=== PATIENT | male | born 1965 | race Two or more races ===

== ENCOUNTER 2017-11-07 11:00 | Outpatient (RCR) | payer BC, SELFPAY ==
--- NOTE | 2017-10-24 08:26 | PTTR_ITS ---
DATE: 10/24/17 SUBJECTIVE: Robert states that his arms are feeling a bit stronger. He continues to have left elbow pain, which in fact got a bit worse after cutting trails through the [place] this week, particularly using loppers and the weed whacker. He 's also experiencing left wrist pain, particularly in weight bearing positions and when using equipment. Compliant with HEP: x Yes No OBJECTIVE: Manual therapy: ([id number]): Patient received DTM to the left wrist extensor group. He received CFM to the common extensor tendon, and grade II elbow mobs. His wrist ROM is full, although he does have significant tightness through the extensor group. He received manual stretching here, followed by grade III MWM into wrist extension, with overpressure at the capitate. He received IASTM for upregulation of the right biceps; deferred on taping today, as patient is unsure if he sees benefit with this. He was instructed in quadruped alternating arm lifts for 10 reps twice per day, and instructed to transition to green theraband for bicep curls, and add 1# weights to wrist extension. Direct treatment time: 30 minutes Total treatment time: 30 minutes
--- NOTE | 2017-11-07 11:00 | PTTR_ITS ---
DATE: 11/07/17 SUBJECTIVE: Robert states that his biceps seem to be feeling better. He continues to notice weakness, although has less pain than previously. His elbow continues to be an issue, symptoms fluctuate significantly based on activity. He continues to be doing a great deal of aggressive activity in regards to building his house. He built a pizza oven and did a great deal of stirring the chai work and states his elbow was quite irritated after this. Manual therapy: ([id number]). Patient received manual stretching to L wrist extensors followed by deep tissue mobilization techniques throughout the extensor group and cross friction massage to the common extensor tendon. He received elbow mobilizations at grade 3 followed by manual mobilization to the L wrist with over pressure at the capitate during passive wrist extension. Therapeutic procedures ([id number]). Patient was instructed in a progressed exercise program. He was instructed in eccentric loading of the extensor group with use of a green flex bar. He performs 2 sets of 10 reps with this requiring significant cueing throughout. He was also instructed in serratus punches with 5# resistance for 10 reps and self stretching to the extensor group. He was provided with hand outs for home completion for each of these activities. He will modify his quadruped activities although if these continue to create stress to the wrist, he will discontinue them. Direct treatment time: 30 mins Total treatment time: 30 mins SS/dl
== END 2017-11-22 23:59 | disposition home or self-care (01) ==
LOC: PT 11:00
PROVIDERS: PCP Specialist/Technologist Athletic Trainer; Referring Provider Specialist/Technologist Athletic Trainer; Visit Provider Specialist/Technologist Athletic Trainer
DX: M77.12 Lateral epicondylitis, left elbow (principal); S46.201D Unspecified injury of muscle, fascia and tendon of other parts of biceps, right arm, subsequent encounter
CPT/HCPCS: 97110; 97140

== ENCOUNTER 2018-11-17 11:52 | Day surgery (SDC) | payer BC, SELFPAY ==
--- NOTE | 2018-11-17 07:07 | W.COLOREPORT ---
Date of service: 11/17/18 Time of Service: 12:54 Colonoscopy Report Date of procedure: 11/17/18 Pre-op diagnosis general: Family history of colon cancer Post-op diagnosis procedure note: other (colorectal polyps) Procedure: Colonoscopy with polypectomy by cold forceps Surgeon: Jaja Gaona Anesthesia proc note operative: other (General/ ASA 2/Ángela Green, LUTHER) Estimated blood loss (mL): 2 Pathology: other (ascending, transverse x2 and descending polyp) Complications: None Disposition: same day Indications: Mr. Trujillo is a pleasant 53 year old male seen in the office for a colonoscopy. His last colonoscopy was in 2013 and was unremarkable. He has a family history of colon cancer. Risks, benefits and complications have been reviewed. Complications include but are not limited to bleeding, pain, perforation, missed small lesion/polyp, sore throat, aspiration and adverse reaction to the medications. Questions were entertained and answered to their satisfaction and they wished to proceed. No guarantees were given or implied. Prep: Miralax/Dulcolax Procedure Start Time: 12:54 Procedure End Time: 13:24 Retraction Time: 21 Findings: Small polyp x 4 removed Procedure Description: After informed consent was obtained the patient was taken to the procedure room and placed in a left decubitous position. Monitors were applied and a time out was done. The patients name, date of , procedure, allergies to medications and metal in their body was reviewed. The patient was then sedated. Once sedated and comfortable a rectal exam was done. External exam was normal. Internal exam revealed a normal sphincter tone and no palpable masses. The prostate was smooth. The scope was then introduced and retro-flexed. No internal hemorrhoids, polyps or masses were identified. The scope was then advanced to the cecum without difficulty. The TI and appendiceal orifice were identified. The prep was adequate. The scope was then slowly retracted over 21 minutes back into the rectum. Polyps were removed with cold forceps in the ascenidng colon, transverse colon x2 and descending colon. The scope was removed and the patient was woken up and taken back to Same day surgery in stable condition. The patient tolerated the procedure well and there were no immediate complications. Follow up: The patient should follow up in 3-5 years unless they develop changes in bowel habits or other new gastrointestinal complaints.
--- NOTE | 2018-11-17 07:10 | W.PM.DSUDISC ---
Discharge Plan Disposition Patient Disposition: HOME Condition: Good Discharge Details Reason For Visit: Colon Cancer Screening/ Family history Attending Provider: Jaja Gaona Primary Care Provider: Duy Shannon Home Meds and New Rx's Prescriptions: Continued carbidopa-levodopa [Sinemet] 25-100 mg tablet 2 tab PO BID Qty: 360 RF: 3 Discontinued polyethylene glycol 3350 17 gram/dose powder 238 g PO ONCE Qty: 238 RF: 0 bisacodyl [Dulcolax (bisacodyl)] 5 mg tablet,delayed release (DR/EC) 5 mg PO ONCE Qty: 4 RF: 0 Discharge Instructions Instructions: Colonoscopy (GEN), Colorectal Polyps (GEN) Additional Instructions: Findings: 4 small polyps Follow up: 3-5 Please call if you develop: fevers >101.5 Nausea or Vomiting Abdominal pain that is not transient DAY SURGERY UNIT POST COLONOSCOPY INSTRUCTIONS 1. Because there will be medication in your system for the next 24 hours, you may feel a little sleepy. Your coordination will be affected. Therefore: a. Do not drive or operate dangerous equipment for 24 hours. b. Do not drink alcohol beverages for 24 hours (not even beer). c. Plan to go home and rest for the day. 2. Generally there are no restrictions on your activity after a day or so has gone by, but you may feel a bit fatigued for a few days. 3 After you arrive home you may have a light meal and return to a normal diet as you can tolerate it without feeling sick to your stomach. 4. After surgery, you may feel pain or discomfort. This should be only transient, but if it persists please contact your doctor. 5. If there are any questions regarding the findings of your procedure, please feel free to contact your doctor. 6. If you are unable to contact your doctor with a problem, contact the hospital at [phone]. 7. Continue all your regular medications unless directed otherwise. I understand the above instructions and have no questions. Signature of Patient or Responsible Adult Escort Date/Time Name of Responsible Adult Escort Signature of Nurse Date/Time Activity:: Activity as Tolerated Diet:: As Tolerated Discharge Orders Discharge Orders: Discharge Order (Routine); Ordered 11/17/18 Ordered By: Jaja Gaona DS: Diagnosis Discharge Diagnosis (1) S/P colonoscopy: Status: Acute (2) Colorectal polyps: (3) Family history of colon cancer:
[2018-11-17 12:15] VITALS: BP 132/81; PULSE 55; RESP 18; TEMP 36.3; O2SAT 94
[2018-11-17 12:23] VITALS: BP 132/81; PULSE 55; RESP 18; TEMP 36.3; O2SAT 94
[2018-11-17] MEDS: Lactated Ringers 1,000 ML 80 ML IV (12:34)
--- NOTE | 2018-11-17 13:07 | BOWEL_PTH ---
PATIENT: Robert Trujillo LOC: [facility] U#:[id number] AGE/SX: 53/M ROOM: RE11/17/[address]: Jaja Gaona MD : 1965 BED: DIS: 11/17/2018 SPEC #: [id number] RECD: 11/17/18 17:30 STATUS: RONEY REAriadne #: [id number] MAGEN: 11/17/18 13:[address]: Jaja Gaona DEPT: Surgical Specimen RECD BY: Marcia Deras ENTERED: 11/17/18 17:30 SP TYPE: Bowel OTHR DR: Duy Shannon Tissues: 1 - BIOPSY BOWEL 2 - BIOPSY BOWEL 3 - BIOPSY BOWEL Procedures: GROSS AND MICRO LEVEL 4 Comments: [id number]
[2018-11-17 14:08] VITALS: BP 105/65; PULSE 52; RESP 16; TEMP 36; O2SAT 100
== END 2018-11-17 14:46 | disposition home or self-care (01) ==
LOC: SUR 11:53
PROVIDERS: PCP Specialist/Technologist Athletic Trainer; Visit Provider Surgery
PROC: 0DJD8ZZ Inspection of Lower Intestinal Tract, Via Natural or Artificial Opening Endoscopic (ICD-10-PCS; CPT 45378; principal; 2018-11-17 13:15)
DX: Z12.11 Encounter for screening for malignant neoplasm of colon (principal); Z80.0 Family history of malignant neoplasm of digestive organs; K63.5 Polyp of colon; D12.3 Benign neoplasm of transverse colon; D12.4 Benign neoplasm of descending colon; Z86.010 Personal history of colon polyps; G20 Parkinson's disease
CPT/HCPCS: 45380; 88305

== ENCOUNTER 2020-01-21 14:44 | Outpatient (REF) | payer BC, SELFPAY ==
[2020-01-26 14:16] LABS: Patient Race White; SARS-CoV-2 RNA Undetected (Undetected); SARS-CoV-2 Specimen Source Nasal
== END 2020-01-21 15:04 ==
LOC: NCHCN 14:44
PROVIDERS: PCP Nurse Practitioner Family; Visit Provider Nurse Practitioner Family
DX: Z11.59 Encounter for screening for other viral diseases (principal)
CPT/HCPCS: U0003

== ENCOUNTER 2020-02-05 10:42 | Outpatient (REF) | payer BC, SELFPAY ==
[2020-02-05 19:33] LABS: HCT 46.4 % (40.0-50.0); HGB 15.5 g/dL (13.5-17.5); MCH 31.1 pg (27.0-33.0); MCHC 33.4 % (32.0-36.0); MCV 93.2 fL (80-95); MPV 10.4 fL (8.0-11.0); Platelet Count 243 10^3/uL (130-400); RBC 4.98 10^6/uL (4.36-5.78); RDW 12.2 % (11.8-14.1); RDW-SD 42.2 fL
[2020-02-05 19:44] LABS: ALT 8 U/L (16-63); AST 19 U/L (15-37); Albumin 4.2 g/dL (3.4-5.0); Alkaline Phosphatase 64 U/L (46-116); Anion Gap 6.3 mmol/L (3-11); BUN 19 mg/dL (7-18); Bilirubin, Total 0.4 mg/dL (0.2-1.0); CO2 31.7 mmol/L (21.0-32.0); Calcium 8.7 mg/dL (8.5-10.1); Calculated LDL 169 mg/dL (<100); Chloride 103 mmol/L (98-107); Cholesterol 257 mg/dL (<200); Glucose 98 mg/dL (74-106); HDL Cholesterol 82 mg/dL (40-60); Potassium 4.4 mmol/L (3.5-5.1); Sodium 141 mmol/L (136-145); Total Protein 7.5 g/dL (6.4-8.2); Triglyceride 33 mg/dL (<150)
== END 2020-02-05 11:02 ==
LOC: NCHCN 10:42
PROVIDERS: PCP Nurse Practitioner Family; Visit Provider Nurse Practitioner Family
DX: Z51.81 Encounter for therapeutic drug level monitoring (principal); E78.5 Hyperlipidemia, unspecified
CPT/HCPCS: 80053; 80061; 85027

== ENCOUNTER 2020-02-26 21:50 | Outpatient (REF) | payer BC, SELFPAY ==
[2020-02-26 19:35] LABS: Abs Immature Grans 0.02 10^3/uL (0.0-0.06); Absolute Basophil Count 0.03 10^3/uL (0.0-0.2); Absolute Eosinophil Count 0.07 10^3/uL (0.0-0.7); Absolute Lymphocyte Count 1.03 10^3/uL (1.2-3.4); Absolute Monocyte Count 0.55 10^3/uL (0.1-0.8); Absolute Neutrophil Count 5.59 10^3/uL (1.2-6.7); Basophils % 0.4; HCT 44.4 % (40.0-50.0); HGB 14.9 g/dL (13.5-17.5); Immature Grans % 0.3; Lymphocytes % 14.1; MCH 31.2 pg (27.0-33.0); MCHC 33.6 % (32.0-36.0); MCV 92.9 fL (80-95); MPV 10.2 fL (8.0-11.0); Monocytes % 7.5; Neutrophils % 76.7; Nucleated RBC 0 %; Platelet Count 260 10^3/uL (130-400); RBC 4.78 10^6/uL (4.36-5.78); RDW 12.1 % (11.8-14.1); RDW-SD 41.8 fL; WBC 7.29 10^3/uL (4.4-10.8)
== END 2020-02-26 22:10 ==
LOC: NCHCN 21:50
PROVIDERS: PCP Nurse Practitioner Family; Visit Provider Nurse Practitioner Family
DX: Z00.00 Encounter for general adult medical examination without abnormal findings (principal)
CPT/HCPCS: 85025

== ENCOUNTER 2021-02-10 14:53 | Outpatient (REF) | payer BC, SELFPAY ==
[2021-02-10 15:16] LABS: HCT 45.7 % (40.0-50.0); HGB 15.1 g/dL (13.5-17.5); MCH 30.4 pg (27.0-33.0); MCV 92.1 fL (80-95); Platelet Count 249 10^3/uL (130-400); RBC 4.96 10^6/uL (4.36-5.78); RDW 12.3 % (11.8-14.1); RDW-SD 42.1 fL; WBC 3.65 10^3/uL (4.4-10.8)
[2021-02-10 15:48] LABS: ALT 11 U/L (16-63); AST 23 U/L (15-37); Alkaline Phosphatase 72 U/L (46-116); Anion Gap 7.8 mmol/L (3-11); BUN 21 mg/dL (7-18); Bilirubin, Total 0.5 mg/dL (0.2-1.0); CO2 30.2 mmol/L (21.0-32.0); CREATININE 0.9 mg/dL (0.70-1.30); Calcium 8.9 mg/dL (8.5-10.1); Calculated LDL 170 mg/dL (<100); Chloride 105 mmol/L (98-107); Cholesterol 276 mg/dL (<200); Glucose 92 mg/dL (74-106); HDL Cholesterol 99 mg/dL (40-60); Potassium 4.2 mmol/L (3.5-5.1); Sodium 143 mmol/L (136-145); Total Protein 7.5 g/dL (6.4-8.2); Triglyceride 37 mg/dL (<150)
== END 2021-02-10 14:54 | disposition home or self-care (01) ==
LOC: NCHCN 14:53
PROVIDERS: PCP Nurse Practitioner Family; Visit Provider Nurse Practitioner Family
DX: Z00.00 Encounter for general adult medical examination without abnormal findings (principal); E78.5 Hyperlipidemia, unspecified; Z51.81 Encounter for therapeutic drug level monitoring
CPT/HCPCS: 80053; 80061; 85027

== ENCOUNTER 2022-01-10 06:19 | Day surgery (SDC) | payer BC, SELFPAY ==
--- NOTE | 2022-01-10 06:19 | W.COLOREPORT ---
Colonoscopy Report Date of procedure: 01/10/22 Pre-op diagnosis general: Screening and Hx of polyps Post-op diagnosis procedure note: other (polyps) Procedure: COlonoscopy with polypectomy Surgeon: Jaja Gaona Anesthesia Type: General:No Airway Estimated blood loss (mL): 5 Pathology: other (transverse colon polyp) Complications: None Disposition: same day Indications: The patient? is a pleasant? 56-year-old male who is here to discuss another screening colonoscopy. ? His last colonoscopy was in 2019 and he was found to have polyps.? He denies any changes in bowel habits, melena, hematochezia, unintentional weight loss. He does have a? family history of colon cancer.? The procedure and risks were discussed.? The prep was reviewed in detail.? Risks, benefits and complications have been reviewed. Complications include but are not limited to bleeding, pain, perforation, missed small lesion/polyp, sore throat, aspiration and adverse reaction to the medications. Questions were entertained and answered to their satisfaction and they wished to proceed. No guarantees were given or implied. Prep: Miralax/Dulcolax Procedure Start Time: 07:23 Procedure End Time: 07:51 Retraction Time: 16 minutes Findings: One sessile polyp >1 cm in size Procedure Description: After informed consent was obtained the patient was taken to the procedure room and placed in a left decubitous position. Monitors were applied and a time out was done. The patients name, date of , procedure, allergies to medications and metal in their body was reviewed. The patient was then sedated. Once sedated and comfortable a rectal exam was done. External exam was normal. Internal exam revealed a normal sphincter tone and no palpable masses. The prostate felt smooth. The scope was then introduced and retro-flexed. No internal hemorrhoids, polyps or masses were identified on retro-flexion. The scope was then advanced to the cecum without difficulty. The ileocecal vlave and appendiceal orifice were identified. The prep was adequate. The scope was then slowly retracted over 16 minutes back into the rectum. Polyps were removed with a hot snare in the proximal transverse colon. There was no diverticulosis noted. The scope was removed and the patient was woken up and taken back to Same day surgery in stable condition. The patient tolerated the procedure well and there were no immediate complications.
[2022-01-10 06:20] VITALS: BP 126/82; PULSE 77; RESP 18; TEMP 36.3; O2SAT 98
--- NOTE | 2022-01-10 06:21 | W.PM.DSUDISC ---
Discharge Plan Disposition Patient Disposition: HOME Condition: Good Discharge Details Reason For Visit: COlonoscopy Attending Provider: Jaja Gaona Primary Care Provider: Kajal Jolly Home Meds and New Rx's Prescriptions: Continued carbidopa-levodopa [Sinemet] 25-100 mg tablet 2 tab PO .COMPLEX Qty: 540 3RF Rx Instructions: 2 tabs orally BID am and noon with an extra 2 tabs once daily prn in the evening; am and noon Discontinued polyethylene glycol 3350 17 gram/dose powder 238 g PO ONCE Qty: 238 0RF Rx Instructions: take per colonoscopy instructions bisacodyl [Dulcolax (bisacodyl)] 5 mg tablet,delayed release (DR/EC) 5 mg PO ONCE Qty: 4 0RF Rx Instructions: take per colonoscopy instructions Discharge Instructions Additional Instructions: Findings: One polyp Follow up: 3-5 years depending on pathology results Please call if you develop: fevers >101.5 Nausea or Vomiting Abdominal pain that is not transient Rectal bleeding that is more then a tbsp A hard abdomen and inability to pass gas DAY SURGERY UNIT POST ENDOSCOPY INSTRUCTIONS Instructions for everyone who is given Anesthesia: For your safety, please do the following for the next 24 Hours: a. Do not drive or operate dangerous equipment b. Do not drink alcohol beverages or use any recreational drugs for the first 24 hours or while taking pain medications. The medications in your body may have a reaction that can be dangerous. c. Do not make any important decisions or sign any important papers 1. Generally there are no restrictions on your activity after a day or so has gone by, but you may feel a bit fatigued for a few days. 2. After you arrive home you may have a light meal and return to a normal diet as you can tolerate it without feeling sick to your stomach. 3. After surgery, you may feel pain or discomfort. This should be only transient, but if it persists please contact your doctor. 4. If there are any questions regarding the findings of your procedure, please feel free to contact your doctor. 6. If you are unable to contact your doctor with a problem, contact the hospital at [phone]. 7. Continue all your regular medications unless directed otherwise. I understand the above instructions and have no questions. Signature of Patient or Responsible Adult Escort Date/Time Name of Responsible Adult Escort Signature of Nurse Date/Time Activity:: Activity as Tolerated Diet:: As Tolerated Discharge Orders Discharge Orders: Discharge Order (Routine); Ordered 01/10/22 Ordered By: Jaja Gaona
[2022-01-10] MEDS: Lactated Ringers 1,000 ML 80 ML IV (06:45)
--- NOTE | 2022-01-10 07:08 | W.ANESPRE ---
General Info Date of Service Date Performed: 01/10/22 Height: 6 ft Weight: 71.3 kg Body Mass Index (BMI): 21.3 Surgical Procedure: Operation Date: 01/10/22 07:35 Proposed Procedure Side Surgeon p Colonoscopy Jaja Gaona MD Actual Procedure Side Surgeon p Colonoscopy Jaja Gaona MD Meds Allergies and Home Medications Allergies Allergy/AdvReac Type Severity Reaction Status Date / Time No Known Allergies Allergy Verified 01/10/22 06:22 Home Medication Medication Instructions Recorded carbidopa 25 mg-levodopa 100 mg 2 tab PO .COMPLEX #540 tabs 10/02/21 tablet (Sinemet) bisacodyl 5 mg tablet,delayed 5 mg PO ONCE colonscopy bowel prep 01/02/22 release (Dulcolax (bisacodyl)) #4 tabs polyethylene glycol 3350 17 238 g PO ONCE colonoscopy prep 01/02/22 gram/dose oral powder #238 grams Current Visit Medications: Current Medications Generic Name Dose Route Start Last Admin Trade Name Freq PRN Reason Stop Dose Admin Hyoscyamine Sulfate 0.125 mg 01/10/22 06:21 Hyoscyamine 0.125 Mg Sl/Oral/Chew SL DIRECTED PRN Ringer's Solution 1,000 mls @ 80 mls/hr 01/10/22 06:00 01/10/22 06:45 IV 02/08/22 23:59 80 mls/hr INFUSION ELOISA Administration IV Miscellaneous Supplies 1 each 01/10/22 06:00 Iv Access IV 02/08/22 23:59 DIRECTED ELOISA Ondansetron HCl 4 mg 01/10/22 06:21 Ondansetron 4 Mg/2 Ml Vial IVP Q4H PRN PRN Nausea / Vomiting Sodium Chloride 0 ml 01/10/22 06:00 Normal Saline Flush 10 Ml Syr IV 02/08/22 23:59 PRN PRN Sodium Chloride 0 ml 01/10/22 06:00 Normal Saline 10 Ml Vial IJ 02/08/22 23:59 DIRECTED PRN Sterile Water 0 ml 01/10/22 06:00 Water,Injection,Sterile 10 Ml Vial IJ 02/08/22 23:59 DIRECTED PRN PFSH Active Problems Active Problems: Problem Status Onset Code S/P colonoscopy ~11/17/18 Z98.890 Seasonal depression Hyperlipidemia E78.5 Paroxysmal SVT (supraventricular tachycardia) I47.1 Parkinson disease 04/24/16 G20 Medical History Medical History Colorectal polyps sessile serrated adenoma x1, tubular adenoma x1. Cubital tunnel syndrome on right incidental finding on NCS in 2013, pt denies Family history of colon cancer Mild carpal tunnel syndrome of right wrist incidental finding on NCS in 2013 Tobacco Smoking/Tobacco Use Status: Never Alcohol Alcohol Intake: former Substance Use Substance use: Never Substance use type: does not use Vital Signs and Lab Results Vital Signs Most Recent Vital Signs in EMR: Most Recent Vital Signs Temp Pulse Resp BP Pulse Ox 36.3 C L 77 18 126/82 98 01/10/22 06:20 01/10/22 06:20 01/10/22 06:20 01/10/22 06:20 01/10/22 06:20 Lab Results Blood Type / Crossmatch: No Data to Display Complete Blood Count: No Data to Display Complete Metabolic Panel: No Data to Display Liver Function Panel: No Data to Display Coagulation Panel: No Data to Display Cardiac Panel: No Data to Display Arterial Blood Gas: No Data to Display Venous Blood Gas: No Data to Display Pancreas Panel: No Data to Display Thyroid Panel: No Data to Display Infectious Disease: No Data to Display Blood Cultures: No Data to Display Toxicology Panel: No Data to Display Anesthesia Assessment and Plan Anesthesia History Personal History: No History of Anesthesia Complications Family History: No Family History of Anesthesia Complications Exercise Tolerance Exercise Tolerance: Metabolic Equivalents>4 Pertinent Negatives Pertinent Negatives: No Symptoms of GERD, No Major Cardiovascular Symptoms or Complaints, No Major Pulmonary Symptoms or Complaints and No History of CVA/TIA Cardiac & Pulmonary Exam Cardiac Exam: Normal S1/S2 Heart Sounds Pulmonary Exam: Clear Bilateral Breath Sounds Implantable Cardiac Device Does patient have a Pacemaker or an ICD?: No Airway Exam Known Difficult Airway: No Mallampati Class: 2 Mouth Opening: Normal (> 3cm) Thyromental Distance: Greater than 3 cm Neck Range of Motion: Full ROM Neck Circumference: Normal Teeth Condition: Normal Dentition ASA Classification ASA Score: ASA 2 Emergency Case?: No NPO Status NPO Status: NPO Clears >2 hours, Solids >8 hours Anesthesia Plan Resuscitation Status: Full Code Anesthesia Technique: General Anesthesia Airway Planned: Natural Airway Monitors Used: Standard Monitors
[2022-01-10 07:12] VITALS: BMI 21.3
--- NOTE | 2022-01-10 07:40 | BOWEL_PTH ---
PATIENT: Robert Trujillo LOC: [facility] U#:[id number] AGE/SX: 56/M ROOM: RE01/10/[address]: Jaja Gaona MD : 1965 BED: DIS: 01/10/2022 SPEC #: [id number] RECD: 01/10/22 12:43 STATUS: RONEY REQ #: [id number] MAGEN: 01/10/22 07:[address]: Jaja Gaona DEPT: Surgical Specimen RECD BY: Marcia Deras ENTERED: 01/10/22 12:43 SP TYPE: Bowel OTHR DR: Kajal Jolly Tissues: 1 - BIOPSY BOWEL Procedures: GROSS AND MICRO LEVEL 4 Comments: [id number]
[2022-01-10 07:55] VITALS: BP 97/67; PULSE 59; RESP 16; TEMP 36.6; O2SAT 99
[2022-01-10 08:25] VITALS: BP 115/80; PULSE 54; RESP 18; TEMP 36.7; O2SAT 98
--- NOTE | 2022-01-10 08:33 | W.ANESPOSTOP ---
Postoperative Evaluation Date, Time and Location Date Performed: 01/10/22 Time Performed: 08:09 Patient Location: Day Surgery Unit Vital Signs Most Recent Imported Vital Signs: Most Recent Vital Signs Temp Pulse Resp BP Pulse Ox 36.6 C 59 L 16 97/67 L 99 01/10/22 07:55 01/10/22 07:55 01/10/22 07:55 01/10/22 07:55 01/10/22 07:55 Pain Score Most Recent Pain Score: Most Recent Pain Score Pain Level 0 01/10/22 07:55 Assessment Mental Status: Awake (Alert & Oriented to Patient Baseline) Airway and Respiratory Function: Patent airway with normal (patient baseline) respiratory exam Cardiovascular Function: Hemodynamically Stable Hydration Status: Adequately Hydrated Nausea & Vomiting: No Nausea or Vomiting Pain: Pt. Denies Any Pain Peripheral Nerve Block: Patient did not receive a nerve block
== END 2022-01-10 08:43 | disposition home or self-care (01) ==
PROVIDERS: PCP Nurse Practitioner Family; Visit Provider Surgery
PROC: 0DJD8ZZ Inspection of Lower Intestinal Tract, Via Natural or Artificial Opening Endoscopic (ICD-10-PCS; CPT 45378; principal; 2022-01-10 07:30)
DX: Z12.11 Encounter for screening for malignant neoplasm of colon (principal); K63.5 Polyp of colon; G20 Parkinson's disease; Z80.0 Family history of malignant neoplasm of digestive organs; I47.1 Supraventricular tachycardia
CPT/HCPCS: 45385; 88305

== ENCOUNTER 2022-08-10 14:46 | Outpatient (REF) | payer BC, SELFPAY ==
[2022-08-10 18:51] LABS: Abs Immature Grans 0.01 10^3/uL (0.0-0.06); Absolute Basophil Count 0.05 10^3/uL (0.0-0.2); Absolute Eosinophil Count 0.02 10^3/uL (0.0-0.7); Absolute Lymphocyte Count 1.43 10^3/uL (1.2-3.4); Absolute Monocyte Count 0.36 10^3/uL (0.1-0.8); Absolute Neutrophil Count 4.44 10^3/uL (1.2-6.7); Basophils % 0.8; Eosinophils % 0.3; HCT 42.3 % (40.0-50.0); HGB 14.4 g/dL (13.5-17.5); Immature Grans % 0.2; Lymphocytes % 22.7; MCH 31.4 pg (27.0-33.0); MCV 92 fL (80-95); MPV 9.6 fL (8.0-11.0); Monocytes % 5.7; Neutrophils % 70.3; Platelet Count 239 10^3/uL (130-400); RBC 4.59 10^6/uL (4.36-5.78); RDW 12.6 % (11.8-14.1); RDW-SD 42.5 fL; WBC 6.31 10^3/uL (4.4-10.8)
[2022-08-10 19:15] LABS: ALT 7 U/L (16-63); AST 32 U/L (15-37); Alkaline Phosphatase 75 U/L (46-116); Anion Gap 6.2 mmol/L (3-11); BUN 25 mg/dL (7-18); Bilirubin, Total 0.5 mg/dL (0.2-1.0); CO2 27.8 mmol/L (21.0-32.0); CREATININE 1.1 mg/dL (0.70-1.30); Calcium 8.8 mg/dL (8.5-10.1); Calculated LDL 151 mg/dL (<100); Chloride 105 mmol/L (98-107); Cholesterol 248 mg/dL (<200); Estimated GFR 77.33 (mL/min/1.73m2); Glucose 96 mg/dL (74-106); HDL Cholesterol 85 mg/dL (40-60); Potassium 4.5 mmol/L (3.5-5.1); Sodium 139 mmol/L (136-145); Total Protein 7.6 g/dL (6.4-8.2); Triglyceride 60 mg/dL (<150)
[2022-08-10 19:25] LABS: Hemoglobin A1C 5.1 % (<5.7)
[2022-08-13 08:57] LABS: PSA, Screening 0.8 ng/mL (<=3.5)
== END 2022-08-10 14:47 | disposition home or self-care (01) ==
LOC: NCHCN 14:46
PROVIDERS: PCP Nurse Practitioner Family; Visit Provider Nurse Practitioner Family
DX: Z00.00 Encounter for general adult medical examination without abnormal findings (principal); Z13.1 Encounter for screening for diabetes mellitus; Z13.228 Encounter for screening for other metabolic disorders; Z13.220 Encounter for screening for lipoid disorders; Z12.5 Encounter for screening for malignant neoplasm of prostate; Z13.0 Encounter for screening for diseases of the blood and blood-forming organs and certain disorders involving the immune mechanism
CPT/HCPCS: 80053; 80061; 84153; 83036; 85025

== ENCOUNTER 2025-01-08 10:04 | Day surgery (SDC) | payer BC, SELFPAY ==
--- NOTE | 2025-01-07 19:58 | W.PM.DSUDISC ---
Date of service: 01/08/25 Discharge Plan Disposition Patient Disposition: Home Condition: Good Discharge Details Reason For Visit: screening colonoscopy Attending Provider: Rodger Mcconnell Primary Care Provider: Kajal Jolly Home Meds and New Rx's Prescriptions: Continued entacapone 200 mg tablet 200 mg PO TID Qty: 270 3RF Rx Instructions: administer at the same time as l-dopa/carbidopa dose carbidopa-levodopa [Sinemet] 25-100 mg tablet 2 tab PO TID Qty: 540 3RF Discontinued bisacodyl [Dulcolax (bisacodyl)] 5 mg tablet,delayed release (DR/EC) 5 mg PO ONCE Qty: 4 0RF Rx Instructions: take per colonoscopy instructions polyethylene glycol 3350 17 gram/dose powder 238 g PO ONCE Qty: 238 0RF Rx Instructions: take per colonoscopy instructions Discharge Instructions Instructions: Colon polyps Additional Instructions: Lars, it was great seeing you today, and I hope you feel well after the procedure. Things went very smoothly. Your prep was excellent, we could see everything fine. I did find, and remove 1 small polyp today. I have the pathologist review this. Those results will take a week or 2 to get back, but once my office has that information, we will be in touch with recommendations for future colonoscopies. If you need anything or have any questions, please do not hesitate to call. 1. If tolerated, consume a soft, low fiber diet for 1-2 days. 2[address] Do not drive, drink alcohol, operate machinery, make critical decisions, or do activities that require coordination or balance for 24 hours. 3. Because air was put into your colon during the procedure, expelling air from your rectum (passing gas or farting) is normal. 4. You may not have a bowel movement for 1-3 days because of the colonoscopy prep. This is normal. 5. Go directly to the emergency room if you notice any of the following: Develop chills (warm to touch), or if you have a thermometer and your temperature is above 101 Difficulty breathing or difficultly swallowing Persistent vomiting Severe abdominal pain, other than gas cramps Severe chest pain Black, tarry stools Any bleeding ? exceeding one tablespoon 6. Call your physician if the site where your intravenous was started becomes red, swollen, painful, and warm to touch. 7. Your physician has reviewed your pre-procedure medications. Please continue to take those medications as previously ordered. You will be given specific information/education regarding any changes to your medications before leaving. Activity:: Activity as Tolerated Diet:: As Tolerated Discharge Orders Discharge Orders: Discharge Order (Routine); Ordered 01/07/25 Ordered By: Rodger Mcconnell DS: Diagnosis Discharge Diagnosis (1) Encounter for screening colonoscopy: Status: Acute Asessment and Plan: Follow-up on polypectomy results
--- NOTE | 2025-01-07 20:00 | COLE_ITS ---
Date of service: 01/08/25 Time of Service: 11:56 Colonoscopy Report Date of procedure: 01/08/25 Pre-op diagnosis general: screening colonoscopy Post-op diagnosis procedure note: other (Colon polyp) Procedure: colonoscopy with polypectomy Surgeon: Rodger Mcconnell Anesthesia Type: General:No Airway Estimated blood loss (mL): 5 Pathology: other (0.25 cm flat polyp at 70 cm) Complications: None Disposition: same day Indications: Robert is a 59 year old man with a first degree family historyof colon cancer and a personal history of adenomatous poylps. He needs his next screening colonoscopy Prep: Miralax/Dulcolax Procedure Start Time: 11:29 Procedure End Time: 11:47 Retraction Time: 9 Findings: 0.25 cm flat polyp at 70 cm Procedure Description: After the induction of anesthesia, and with Lars in left lateral decubitus position, I began by performing an external anorectal exam.? Perineum and skin were normal, as was the anal verge.? There was no evidence of external hemorrhoids.? Next, I performed a digital rectal exam.? I did not appreciate any abnormal findings.? Next, I advanced a colonoscope into the rectal vault.? I performed retroflexion.? This appeared normal.? Using irrigation, I then advanced the colonoscope beyond the rectal folds and into the sigmoid colon before advancing towards the cecum.? The quality of the prep was excellent.? The scope was noted to be in the cecum by identification of the ileocecal valve and appendiceal orifice.? I then began withdrawing the colonoscope using repeated irrigation as necessary for full evaluation of the colonic mucosa. Around 70 cm from the anal verge I identified a 0.25 cm polyp. ?It appeared flat in character. ?I was able to remove this with a cold forcep polypectomy. ?I examined the site, and there was minimal bleeding. ?Once this was completed, I continued to withdraw the scope and examine the remainder of the colonic mucosa.?Once the scope was withdrawn to the level of the rectum, great care was taken to examine portions of the rectal folds.? Finally, the scope was withdrawn and the patient was brought to the same-day surgery recovery unit as the anesthetic wore off. ?The findings and instructions were shared with the patient prior to discharge. [place] Bowel Prep [place] Bowel Prep Right Colon: 3 Left Colon: 3 Transverse Colon: 3 Total Score: 9
[2025-01-08 10:07] VITALS: BP 127/85; PULSE 70; RESP 18; TEMP 36.5; O2SAT 98
[2025-01-08] MEDS: Lactated Ringers 1,000 ML 80 ML IV (10:31)
--- NOTE | 2025-01-08 11:15 | ANES.PREOP_ITS ---
General Info Date of Service Date Performed: 01/08/25 Height: 6 ft Weight: 72.3 kg Body Mass Index (BMI): 21.6 Surgical Procedure: Operation Date: 01/08/25 11:35 Proposed Procedure Side Surgeon p Colonoscopy Rodger Mcconnell MD Meds Allergies and Home Medications Allergies Allergy/AdvReac Type Severity Reaction Status Date / Time No Known Allergies Allergy Verified 01/08/25 10:25 Home Medication ?Medication ?Instructions ?Recorded carbidopa 25 mg-levodopa 100 mg 2 tab PO TID #540 tabs 08/19/24 tablet (Sinemet) entacapone 200 mg tablet 200 mg PO TID #270 tabs 07/24 11/16 Current Visit Medications: Current Medications Generic Name Dose Route Start Last Admin Trade Name Freq PRN Reason Stop Dose Admin Ringer's Solution 1,000 mls @ 80 mls/hr 01/08/25 06:00 01/08/25 10:31 IV 01/08/25 23:59 80 mls/hr INFUSION ELOISA Administration IV Miscellaneous Supplies 1 each 01/08/25 06:00 Iv Access IV 01/08/25 23:59 DIRECTED ELOISA Sodium Chloride 0 ml 01/08/25 06:00 Normal Saline Flush 10 Ml Syr IV 01/08/25 23:59 PRN PRN Sodium Chloride 0 ml 01/08/25 06:00 Normal Saline 10 Ml Vial IJ 01/08/25 23:59 DIRECTED PRN Sterile Water 0 ml 01/08/25 06:00 Water,Injection,Sterile 10 Ml Vial IJ 01/08/25 23:59 DIRECTED PRN PFSH Active Problems Active Problems: Problem Status Onset Code Encounter for screening colonoscopy Acute Z12.11 Serrated adenoma of colon Acute D12.6 S/P colonoscopy Acute ~11/17/18 Z98.890 Seasonal depression Acute Hyperlipidemia Acute E78.5 Paroxysmal SVT (supraventricular tachycardia) Acute I47.1 Parkinson disease Acute 04/24/16 G20 Medical History Medical History Family history of colon cancer Colorectal polyps sessile serrated adenoma x1, tubular adenoma x1. Cubital tunnel syndrome on right incidental finding on NCS in 2013, pt denies Mild carpal tunnel syndrome of right wrist incidental finding on NCS in 2013 Surgical History Surgical History History of colonoscopy (~12/2021) Tobacco Smoking/Tobacco Use Status: Never Alcohol Alcohol Intake: former Substance Use Substance use: Never Substance use type: does not use Vital Signs and Lab Results Vital Signs Most Recent Vital Signs in EMR: Most Recent Vital Signs Temp Pulse Resp BP Pulse Ox 36.5 C 70 18 127/85 98 01/08/25 10:07 01/08/25 10:07 01/08/25 10:07 01/08/25 10:07 01/08/25 10:07 Anesthesia Assessment and Plan Anesthesia History Personal History: No History of Anesthesia Complications Family History: No Family History of Anesthesia Complications Exercise Tolerance Exercise Tolerance: Metabolic Equivalents>4 Pertinent Negatives Pertinent Negatives: No Symptoms of GERD Cardiac & Pulmonary Exam Cardiac Exam: Normal S1/S2 Heart Sounds Pulmonary Exam: Clear Bilateral Breath Sounds Implantable Cardiac Device Does patient have a Pacemaker or an ICD?: No Airway Exam Known Difficult Airway: No Mallampati Class: 1 Mouth Opening: Normal (> 3cm) Thyromental Distance: Greater than 3 cm Neck Range of Motion: Full ROM Neck Circumference: Normal Teeth Condition: Normal Dentition ASA Classification ASA Score: ASA 3 Emergency Case?: No NPO Status NPO Status: NPO Clears >2 hours, Solids >8 hours Anesthesia Plan Resuscitation Status: Full Code Anesthesia Technique: General Anesthesia Airway Planned: Natural Airway Monitors Used: Standard Monitors
[2025-01-08 11:17] VITALS: BMI 21.6
--- NOTE | 2025-01-08 11:40 | BOWEL_PTH ---
PATIENT: Robert Trujillo LOC: [facility] U#:[id number] AGE/SX: 59/M ROOM: RE01/08/[address]: Rodger Mcconnell MD : 1965 BED: DIS: 01/08/2025 SPEC #: [id number] RECD: 01/08/25 12:41 STATUS: RONEY REQ #: [id number] MAGEN: 01/08/25 11:[address]: Rodger Mcconnell DEPT: Surgical Specimen RECD BY: Marcia Deras ENTERED: 01/08/25 12:42 SP TYPE: Bowel OTHR DR: Kajal Jolly Tissues: 1 - BIOPSY BOWEL Procedures: GROSS AND MICRO LEVEL 4 Comments: [id number]
[2025-01-08 11:52] VITALS: BP 114/74; PULSE 59; RESP 12; TEMP 36.2; O2SAT 99
[2025-01-08 12:24] VITALS: BP 119/75; PULSE 61; RESP 12; TEMP 36.3; O2SAT 100
--- NOTE | 2025-01-08 13:28 | W.ANESPOSTOP ---
Postoperative Evaluation Date, Time and Location Date Performed: 01/08/25 Time Performed: 12:29 Patient Location: Day Surgery Unit Vital Signs Most Recent Imported Vital Signs: Most Recent Vital Signs Temp Pulse Resp BP Pulse Ox 36.3 C L 61 12 119/75 100 01/08/25 12:24 01/08/25 12:24 01/08/25 12:24 01/08/25 12:24 01/08/25 12:24 Pain Score Most Recent Pain Score: Most Recent Pain Score Pain Level 0 01/08/25 12:24 Assessment Mental Status: Awake (Alert & Oriented to Patient Baseline) Airway and Respiratory Function: Patent airway with normal (patient baseline) respiratory exam Cardiovascular Function: Hemodynamically Stable Hydration Status: Adequately Hydrated Nausea & Vomiting: No Nausea or Vomiting Pain: Pt. Denies Any Pain Peripheral Nerve Block: Patient did not receive a nerve block
== END 2025-01-08 12:38 | disposition home or self-care (01) ==
LOC: SUR 10:04
PROVIDERS: PCP Nurse Practitioner Family; Visit Provider Surgery
PROC: 0DJD8ZZ Inspection of Lower Intestinal Tract, Via Natural or Artificial Opening Endoscopic (ICD-10-PCS; CPT 45378; principal; 2025-01-08 11:30)
DX: Z12.11 Encounter for screening for malignant neoplasm of colon (principal); D12.4 Benign neoplasm of descending colon; Z80.0 Family history of malignant neoplasm of digestive organs
CPT/HCPCS: 45380; 88305; J2704

== ENCOUNTER 2025-02-25 16:44 | Outpatient (REF) | payer BC, SELFPAY ==
[2025-02-25 19:04] LABS: Hemoglobin A1C 5.0 % (<5.7)
[2025-02-25 19:08] LABS: ALT 8 U/L (10-49); AST 25 U/L (<34); Albumin 4.5 g/dL (3.2-5.0); Alkaline Phosphatase 62 U/L (46-116); Anion Gap 6.7 mmol/L (3-11); BUN 26 mg/dL (9-23); Bilirubin, Total 0.70 mg/dL (0.2-1.2); CO2 30.3 mmol/L (20.0-31.0); Calcium 9.5 mg/dL (8.3-10.6); Chloride 107 mmol/L (98-107); Cholesterol 280 mg/dL (<200); Glucose 93 mg/dL (74-106); HDL Cholesterol 87 mg/dL (>40); Potassium 4.2 mmol/L (3.5-5.1); Sodium 144 mmol/L (136-145); Total Protein 7.2 g/dL (5.7-8.2)
[2025-02-26 18:19] LABS: PSA, Screening 0.9 ng/mL (<=4.5)
== END 2025-02-25 16:45 | disposition home or self-care (01) ==
LOC: NCHCN 16:44
PROVIDERS: PCP Nurse Practitioner Family; Visit Provider Nurse Practitioner Family
DX: G20.A1 Parkinson's disease without dyskinesia, without mention of fluctuations (principal); Z13.1 Encounter for screening for diabetes mellitus; Z12.5 Encounter for screening for malignant neoplasm of prostate; E78.5 Hyperlipidemia, unspecified
CPT/HCPCS: 80053; 80061; 84153; 83036